=== PATIENT | female | born 1990 | race Hispanic/Latino ===

== ENCOUNTER 2023-11-24 16:09 | Emergency (ER) | payer MEDICAID, SELFPAY ==
[2023-11-24] MEDS ORDERED: Ketorolac Tromethamine 30 MG (1 mL) VIAL ONE (17:48)
== END 2023-11-24 19:13 | disposition home or self-care (01) ==
LOC: ERS 16:09
DX: M25.511 Pain in right shoulder (principal); M54.6 Pain in thoracic spine
CPT/HCPCS: 71046; 72072; 96372; J1885